=== PATIENT | female | born 1950 | race Caucasian/White ===

== ENCOUNTER 2022-01-02 07:18 | Day surgery (SDC) | payer MEDICARE ==
[~2022-01-02 07:18] MED LIST: Lactated Ringers 1,000 ML IV SCH; Sodium Chloride 0.9% 10 ML Syringe FLUSH PRN; Sodium Chloride 0.9% 2.5 ML Syringe FLUSH PRN; Sodium Chloride 0.9% 20 ML SDV IV PRN
[2022-01-02] MEDS ORDERED: Propofol 200 MG/20 ML SDV ONE (08:22)
[2022-01-02] MEDS ORDERED: Lidocaine 2% 5 ML SDV ONE (08:22)
[2022-01-02] MEDS ORDERED: fentaNYL 100 MCG/2 ML SDV ONE (08:22)
[2022-01-02] MEDS ORDERED: Atropine 1 MG/ML SDV ONE (09:40)
== END 2022-01-02 10:55 | disposition home or self-care (01) ==
LOC: MW.SDS 07:18
PROVIDERS: ATTEND Surgery
DX: Z12.11 Encounter for screening for malignant neoplasm of colon (principal); K57.30 Diverticulosis of large intestine without perforation or abscess without bleeding; I10 Essential (primary) hypertension; E78.00 Pure hypercholesterolemia, unspecified; G47.33 Obstructive sleep apnea (adult) (pediatric); K21.9 Gastro-esophageal reflux disease without esophagitis; E11.9 Type 2 diabetes mellitus without complications; Z79.84 Long term (current) use of oral hypoglycemic drugs; Z86.010 Personal history of colon polyps; Z80.0 Family history of malignant neoplasm of digestive organs; Z91.018 Allergy to other foods; Z79.899 Other long term (current) drug therapy; Z79.82 Long term (current) use of aspirin; Z87.891 Personal history of nicotine dependence
CPT/HCPCS: 82947; 93005; G0105; J0461; J2704; J3010; J7120; 00812; 99100